=== PATIENT | male | born 1995 | race Caucasian/White ===

== ENCOUNTER 2022-01-02 11:52 | Emergency (ER) | payer SELFPAY ==
[~2022-01-02] VITALS: Ht 167.6 cm; Wt 101.8 kg
[2022-01-02 14:20] LABS: BASO % 0.2 % (0.0-1.0); EOS % 0.1 % (0.0-3.0); HEMATOCRIT 44.7 % (42.0-52.0); LYMPH # 2.3 10^3/uL (1.5-5.0); LYMPH % 15.7 % (24.0-44.0); MEAN CORPUSCULAR HEMOGLOBIN 30.1 pg (27.0-33.0); MEAN CORPUSCULAR HGB CONC 33.6 g/dl (32.0-36.5); MEAN CORPUSCULAR VOLUME 89.8 fl (80.0-96.0); MONO # 0.7 10^3/uL (0.0-0.8); MONO % 4.5 % (2.0-8.0); NEUTROPHILS # 11.4 10^3/uL (1.5-8.5); NEUTROPHILS % 79.2 % (36.0-66.0); PLATELET COUNT, AUTOMATED 284 10^3/uL (150-450); RED BLOOD COUNT 4.98 10^6/uL (4.30-6.10); WHITE BLOOD COUNT 14.3 10^3/uL (4.0-10.0)
[2022-01-02 14:59] LABS: ALBUMIN 4.4 GM/DL (3.2-5.2); ALT/SGPT 20 U/L (12-78); BILIRUBIN,DIRECT < 0.1 MG/DL (0.0-0.2); BILIRUBIN,TOTAL 0.8 MG/DL (0.2-1.0); LIPASE 108 U/L (73-393); TOTAL PROTEIN 7.8 GM/DL (6.4-8.2)
[2022-01-02] MEDS ORDERED: FLOM0.4C39 PO (15:47)
[2022-01-02] MEDS ORDERED: TAMSULOSIN 0.4 MG CAP PO ONE (15:50)
[2022-01-02 15:59] VITALS: BP 153/85
== END 2022-01-02 16:03 | disposition home or self-care (01) ==
LOC: M ED 11:52
DX: R31.9 Hematuria, unspecified (principal); R10.9 Unspecified abdominal pain; F17.200 Nicotine dependence, unspecified, uncomplicated

== ENCOUNTER 2022-01-05 00:10 | Emergency (ER) | payer SELFPAY ==
[~2022-01-05] VITALS: Ht 167.6 cm; Wt 100.0 kg
[~2022-01-05 00:10] MED LIST: FLOM0.4C39 PO
[2022-01-05 03:57] LABS: APPEARANCE, URINE CLEAR (CLEAR); BACTERIA, URINE AUTO NEGATIVE (NEGATIVE); BILIRUBIN, URINE AUTO NEGATIVE (NEGATIVE); BLOOD, URINE BLOOD 1+ (NEGATIVE); COLOR, URINE STRAW (YELLOW); GLUCOSE, URINE (UA) AUTO NEGATIVE (NEGATIVE); KETONE, URINE AUTO NEGATIVE (NEGATIVE); LEUKOCYTE ESTERASE, URINE AUTO NEGATIVE (NEGATIVE); MUCUS, URINE SMALL (NEGATIVE); NITRITE, URINE AUTO NEGATIVE (NEGATIVE); PROTEIN, URINE AUTO NEGATIVE (NEGATIVE); RBC, URINE AUTO 18 /HPF (0-3); SPECIFIC GRAVITY URINE AUTO 1.013 (1.002-1.035); SQUAMOUS EPITHELIAL CELL UR AU 0 /HPF (0-6); UROBILINOGEN, URINE AUTO 0.2 mg/dL (0.0-2.0); WBC, URINE AUTO 0 /HPF (0-3)
[2022-01-05 03:59] LABS: BASO % 0.3 % (0.0-1.0); EOS % 0.2 % (0.0-3.0); HEMATOCRIT 41.5 % (42.0-52.0); HEMOGLOBIN 13.7 g/dl (13.5-17.5); LYMPH # 1.2 10^3/uL (1.5-5.0); LYMPH % 9.2 % (24.0-44.0); MONO % 12.5 % (2.0-8.0); NEUTROPHILS # 10.3 10^3/uL (1.5-8.5); NEUTROPHILS % 77.5 % (36.0-66.0); PLATELET COUNT, AUTOMATED 256 10^3/uL (150-450); RED BLOOD COUNT 4.56 10^6/uL (4.30-6.10); WHITE BLOOD COUNT 13.2 10^3/uL (4.0-10.0)
[2022-01-05] MEDS ORDERED: MORPHINE 2 MG/ML 1ML VIAL IV ONE (04:10)
[2022-01-05] MEDS ORDERED: traMADol 50 MG TAB (BULK 4 TAB ED) PO ONE (04:10)
[2022-01-05 04:18] LABS: BLOOD UREA NITROGEN 15 MG/DL (7-18); CARBON DIOXIDE LEVEL 25 MEQ/L (21-32); CHLORIDE LEVEL 109 MEQ/L (98-107); CREATININE FOR GFR 1.36 MG/DL (0.70-1.30); GLOMERULAR FILTRATION RATE > 60.0 (>60); GLUCOSE, FASTING 118 MG/DL (70-100); POTASSIUM SERUM 4.2 MEQ/L (3.5-5.1); SODIUM LEVEL 141 MEQ/L (136-145)
[2022-01-05 04:24] LABS: MONO # 1.7 10^3/uL (0.0-0.8)
[2022-01-05] MEDS ORDERED: TAMSULOSIN 0.4 MG CAP PO ONE (04:25)
[2022-01-05] MEDS ORDERED: TRAM50TA2 PO ×2 (04:26→04:40)
[2022-01-05 04:30] VITALS: BP 167/84
[2022-01-05] MEDS ORDERED: FLOM0.4C39 PO (04:40)
== END 2022-01-05 04:45 | disposition home or self-care (01) ==
LOC: M ED 00:10
DX: N20.1 Calculus of ureter (principal); N13.4 Hydroureter; N13.30 Unspecified hydronephrosis; F17.200 Nicotine dependence, unspecified, uncomplicated
CPT/HCPCS: 36415; 74176; 80048; 81001; 85025; 96374; 99283; J2270